=== PATIENT | male | born 1955 | race Caucasian/White ===

== ENCOUNTER → 2021-10-23 | Outpatient (CLI) | payer BC ==
--- NOTE | 2021-10-23 10:28 | Diagnostic Imaging Report ---
INDICATION: History of left hip pinning in 2019. Left hip pain. 2 views left hip were obtained. No prior studies are available for comparison. FINDINGS: There are changes of prior surgery with 3 screws present. Satisfactory alignment. There is no abnormal erosions around the fixation hardware. There is no fracture, dislocation or other acute bony abnormality. No significant degenerative changes of the hip joint are seen. IMPRESSION: Prior surgery. No acute abnormality is seen. Dictated by: Dictated on workstation # [id number]
== END ==
LOC: ORTHO 09:39
PROVIDERS: ATTEND Orthopaedic Surgery
DX: M25.552 Pain in left hip (principal); Z98.890 Other specified postprocedural states; Z96.642 Presence of left artificial hip joint
CPT/HCPCS: 73502; 99203